=== PATIENT | female | born 1995 | race Two or more races ===

== ENCOUNTER 2022-10-25 14:08 | Outpatient (CLI) | payer OTHER | END 2022-10-25 15:25 | disposition home or self-care (01) | LOC: PRENATAL 14:08 | PROVIDERS: ATTEND Obstetrics & Gynecology Maternal & Fetal Medicine | DX: O35.9XX0 Maternal care for (suspected) fetal abnormality and damage, unspecified, not applicable or unspecified (principal); O35.3XX0 Maternal care for (suspected) damage to fetus from viral disease in mother, not applicable or unspecified; Z3A.20 20 weeks gestation of pregnancy ==

== ENCOUNTER 2023-01-12 15:36 | Outpatient (CLI) | payer OTHER | END 2023-01-12 17:22 | disposition home or self-care (01) | LOC: PRENATAL 15:36 | PROVIDERS: ATTEND Obstetrics & Gynecology Maternal & Fetal Medicine | DX: O26.849 Uterine size-date discrepancy, unspecified trimester (principal); O36.8199 Decreased fetal movements, unspecified trimester, other fetus; Z3A.32 32 weeks gestation of pregnancy ==

== ENCOUNTER 2025-04-10 12:34 | Outpatient (CLI) | payer OTHER | END 2025-04-10 12:36 | disposition home or self-care (01) | LOC: PRENATAL 12:34 | PROVIDERS: ATTEND Obstetrics & Gynecology Maternal & Fetal Medicine | DX: O44.00 Complete placenta previa NOS or without hemorrhage, unspecified trimester (principal); Z3A.20 20 weeks gestation of pregnancy ==

== ENCOUNTER 2025-05-30 12:48 | Outpatient (CLI) | payer OTHER | END 2025-05-30 12:50 | disposition home or self-care (01) | LOC: PRENATAL 12:48 | PROVIDERS: ATTEND Obstetrics & Gynecology Maternal & Fetal Medicine | DX: O26.843 Uterine size-date discrepancy, third trimester (principal); O99.013 Anemia complicating pregnancy, third trimester; Z3A.28 28 weeks gestation of pregnancy ==